=== PATIENT | female | born 2000 | race Caucasian/White ===

== ENCOUNTER → 2018-01-15 | Outpatient (REF) | payer OTHER ==
[2018-01-15 11:04] LABS: HEMATOCRIT 41.4 % (36.0-47.0); HEMOGLOBIN 13.7 g/dl (12.0-15.5); MEAN CORPUSCULAR HEMOGLOBIN 29.5 pg (27.0-33.0); MEAN CORPUSCULAR HGB CONC 33.1 g/dl (32.0-36.5); MEAN CORPUSCULAR VOLUME 89.2 fl (80.0-96.0); PLATELET COUNT, AUTOMATED 307 10^3/uL (150-450); RED BLOOD COUNT 4.64 10^6/uL (4.00-5.40); RED CELL DISTRIBUTION WIDTH 11.9 % (11.5-14.5); WHITE BLOOD COUNT 5.5 10^3/uL (4.0-10.0)
[2018-01-15 11:27] LABS: ALBUMIN/GLOBULIN RATIO 1.05 (1.00-1.93); ALKALINE PHOSPHATASE 50 U/L (45-117); ALT/SGPT 39 U/L (12-78); ANION GAP 7 MEQ/L (8-16); AST/SGOT 25 U/L (7-37); BILIRUBIN,TOTAL 0.4 MG/DL (0.2-1.0); BLOOD UREA NITROGEN 13 MG/DL (7-18); CARBON DIOXIDE LEVEL 28 MEQ/L (21-32); CHLORIDE LEVEL 107 MEQ/L (98-107); CHOLESTEROL LEVEL 219 MG/DL (<200); CHOLESTEROL RISK RATIO 5.093 (<5); CREATININE FOR GFR 0.83 MG/DL (0.55-1.30); FREE T4 1.02 NG/DL (0.78-1.33); GLUCOSE, FASTING 85 MG/DL (70-100); HDL CHOLESTEROL 43 MG/DL (>40); LDL CHOLESTEROL 146.6 MG/DL (<100); NON-HDL-C 176 MG/DL; POTASSIUM SERUM 4.6 MEQ/L (3.5-5.1); SODIUM LEVEL 142 MEQ/L (136-145); TOTAL 25(OH) VITAMIN D 19.6 NG/ML (30.0-100.0); TOTAL PROTEIN 7.8 GM/DL (6.4-8.2); TRIGLYCERIDES LEVEL 147 MG/DL (<150)
[2018-01-15 11:28] LABS: FOLATE 11.6 NG/ML; VITAMIN B12 LEVEL 285 PG/ML
[2018-01-15 12:21] LABS: ESTIMATED AVERAGE GLUCOSE 91 MG/DL (60-110); HEMOGLOBIN A1c 4.8 %
== END ==
LOC: M SFHCPLAZ 09:28
DX: F32.89 Other specified depressive episodes (principal); Z83.3 Family history of diabetes mellitus; K21.9 Gastro-esophageal reflux disease without esophagitis; E66.01 Morbid (severe) obesity due to excess calories

== ENCOUNTER 2018-02-05 21:42 | Emergency (ER) | payer OTHER ==
[2018-02-05] MEDS: METHOCARBAMOL 500 MG TAB PO (22:26)
[2018-02-05] MEDS: IBUPROFEN 600 MG TAB PO (22:27)
== END 2018-02-05 22:35 | disposition home or self-care (01) ==
LOC: M ED 21:42
DX: S16.1XXA Strain of muscle, fascia and tendon at neck level, initial encounter (principal); X58.XXXA Exposure to other specified factors, initial encounter; Y92.89 Other specified places as the place of occurrence of the external cause; M54.12 Radiculopathy, cervical region; Z79.899 Other long term (current) drug therapy
CPT/HCPCS: 99282

== ENCOUNTER → 2018-02-09 | Outpatient (CLI) | payer OTHER | LOC: M RAD 16:29 | DX: M54.2 Cervicalgia (principal); M25.512 Pain in left shoulder | CPT/HCPCS: 72052 ==

== ENCOUNTER 2018-02-10 11:51 | Outpatient (RCR) | payer OTHER | END 2018-03-07 | LOC: M PT 11:51 | DX: Z51.89 Encounter for other specified aftercare (principal); M54.2 Cervicalgia; M25.512 Pain in left shoulder; M62.830 Muscle spasm of back | CPT/HCPCS: 97010 ==

== ENCOUNTER 2018-03-08 11:17 | Outpatient (RCR) | payer OTHER | END 2018-04-07 | LOC: M PT 03-11 10:41 | DX: M62.830 Muscle spasm of back (principal) | CPT/HCPCS: 97110 ==

== ENCOUNTER → 2018-04-20 | Outpatient (REF) | payer OTHER ==
[2018-04-20 17:03] LABS: FOLATE 8.7 NG/ML; TOTAL 25(OH) VITAMIN D 23.8 NG/ML (30.0-100.0); VITAMIN B12 LEVEL 352 PG/ML
== END ==
LOC: M SFHCPLAZ 14:38
DX: E55.9 Vitamin D deficiency, unspecified (principal); R79.89 Other specified abnormal findings of blood chemistry
CPT/HCPCS: 82746

== ENCOUNTER 2018-08-17 09:31 | Emergency (ER) | payer OTHER ==
[~2018-08-17] VITALS: Ht 160 cm; Wt 109.4 kg
[~2018-08-17 09:31] MED LIST: IBUP-1022 PO; OMEP40CA2 PO; ROBA500T PO
[2018-08-17] MEDS ORDERED: NS 1,000 ML IV ONE (10:00)
[2018-08-17] MEDS ORDERED: ONDANSETRON 4MG/2ML VIAL (J2405) IV ONE (10:00)
[2018-08-17 10:38] LABS: BASO % 0.2 % (0.0-1.0); EOS # 0.1 10^3/uL (0.0-0.50); EOS % 0.7 % (0.0-3.0); HEMATOCRIT 44.4 % (36.0-47.0); HEMOGLOBIN 14.9 g/dl (12.0-15.5); LYMPH # 0.4 10^3/uL (1.5-6.5); LYMPH % 3.3 % (24.0-44.0); MEAN CORPUSCULAR HEMOGLOBIN 29.7 pg (27.0-33.0); MEAN CORPUSCULAR HGB CONC 33.6 g/dl (32.0-36.5); MEAN CORPUSCULAR VOLUME 88.6 fl (80.0-96.0); MONO # 0.6 10^3/uL (0.0-0.8); MONO % 4.3 % (0.0-5.0); NEUTROPHILS # 11.8 10^3/uL (1.8-7.7); PLATELET COUNT, AUTOMATED 284 10^3/uL (150-450); RED BLOOD COUNT 5.01 10^6/uL (4.00-5.40); WHITE BLOOD COUNT 12.9 10^3/uL (4.0-10.0)
[2018-08-17 10:50] LABS: HCG, SERUM QUALITATIVE NEGATIVE (NEGATIVE)
[2018-08-17 10:58] LABS: ALBUMIN 4.3 GM/DL (3.2-5.2); ALT/SGPT 32 U/L (12-78); AMYLASE 36 U/L (25-115); BILIRUBIN,DIRECT 0.1 MG/DL (0.0-0.2); BILIRUBIN,TOTAL 0.5 MG/DL (0.2-1.0); BLOOD UREA NITROGEN 21 MG/DL (7-18); CALCIUM LEVEL 8.6 MG/DL (8.5-10.1); CARBON DIOXIDE LEVEL 24 MEQ/L (21-32); CHLORIDE LEVEL 108 MEQ/L (98-107); CREATININE FOR GFR 0.95 MG/DL (0.55-1.30); GLUCOSE, FASTING 119 MG/DL (70-100); LIPASE 135 U/L (73-393); POTASSIUM SERUM 4.5 MEQ/L (3.5-5.1); SODIUM LEVEL 140 MEQ/L (136-145); TOTAL PROTEIN 7.8 GM/DL (6.4-8.2)
[2018-08-17] MEDS ORDERED: ONDA4TAB6 PO (11:49)
[2018-08-17 11:55] VITALS: BP 122/56
== END 2018-08-17 12:10 | disposition home or self-care (01) ==
LOC: M ED 09:31
DX: R11.2 Nausea with vomiting, unspecified (principal); K21.9 Gastro-esophageal reflux disease without esophagitis
CPT/HCPCS: 80048; 80076; 81001; 82150; 83690; 84703; 85025; 96361; 96374; 99284; J2405

== ENCOUNTER → 2018-11-12 | Outpatient (REF) | payer OTHER ==
[~2018-11-12] MED LIST changes: +ONDA4TAB6 PO
[2018-11-12 16:20] LABS: FOLATE 8.8 NG/ML
== END ==
LOC: M SFHCPLAZ 12:51
PROVIDERS: ATTEND Nurse Practitioner Family
DX: E55.9 Vitamin D deficiency, unspecified (principal); R79.89 Other specified abnormal findings of blood chemistry

== ENCOUNTER 2019-02-02 09:27 | Emergency (ER) | payer OTHER ==
[~2019-02-02] VITALS: Ht 160 cm; Wt 100.0 kg
[~2019-02-02 09:27] MED LIST changes: -OMEP40CA2 PO; +OMEP40CA97 PO
[2019-02-02 10:21] LABS: APPEARANCE, URINE CLEAR (CLEAR); BACTERIA, URINE AUTO NEGATIVE (NEGATIVE); BILIRUBIN, URINE AUTO NEGATIVE (NEGATIVE); BLOOD, URINE BLOOD NEGATIVE (NEGATIVE); COLOR, URINE YELLOW (YELLOW); GLUCOSE, URINE (UA) AUTO NEGATIVE (NEGATIVE); KETONE, URINE AUTO 1+ mg/dL (NEGATIVE); LEUKOCYTE ESTERASE, URINE AUTO NEGATIVE (NEGATIVE); MUCUS, URINE SMALL (NEGATIVE); NITRITE, URINE AUTO NEGATIVE (NEGATIVE); PROTEIN, URINE AUTO NEGATIVE (NEGATIVE); RBC, URINE AUTO 2 /HPF (0-3); SPECIFIC GRAVITY URINE AUTO 1.018 (1.002-1.035); SQUAMOUS EPITHELIAL CELL UR AU 0 /HPF (0-6); UROBILINOGEN, URINE AUTO 0.2 mg/dL (0.0-2.0); WBC, URINE AUTO 0 /HPF (0-3)
[2019-02-02 10:38] LABS: BASO % 0.2 % (0.0-1.0); EOS # 0.1 10^3/uL (0.0-0.50); EOS % 1.7 % (0.0-3.0); HEMATOCRIT 42.1 % (36.0-47.0); HEMOGLOBIN 14.2 g/dl (12.0-15.5); LYMPH # 1.7 10^3/uL (1.5-6.5); LYMPH % 26.1 % (24.0-44.0); MEAN CORPUSCULAR HEMOGLOBIN 30.7 pg (27.0-33.0); MEAN CORPUSCULAR HGB CONC 33.7 g/dl (32.0-36.5); MEAN CORPUSCULAR VOLUME 90.9 fl (80.0-96.0); MONO # 0.4 10^3/uL (0.0-0.8); MONO % 5.9 % (0.0-5.0); NEUTROPHILS # 4.4 10^3/uL (1.8-7.7); NEUTROPHILS % 65.8 % (36.0-66.0); PLATELET COUNT, AUTOMATED 272 10^3/uL (150-450); RED BLOOD COUNT 4.63 10^6/uL (4.00-5.40); WHITE BLOOD COUNT 6.6 10^3/uL (4.0-10.0)
[2019-02-02 11:10] LABS: ALBUMIN 3.9 GM/DL (3.2-5.2); ALT/SGPT 27 U/L (12-78); BILIRUBIN,DIRECT 0.1 MG/DL (0.0-0.2); BILIRUBIN,TOTAL 0.6 MG/DL (0.2-1.0); BLOOD UREA NITROGEN 13 MG/DL (7-18); CALCIUM LEVEL 9.1 MG/DL (8.5-10.1); CARBON DIOXIDE LEVEL 27 MEQ/L (21-32); CHLORIDE LEVEL 105 MEQ/L (98-107); CK-MB VALUE MASS < 1.0 NG/ML (<3.6); CPK CREATINE PHOSPHOKINASE 120 U/L (26-192); CREATININE FOR GFR 0.76 MG/DL (0.55-1.30); GLUCOSE, FASTING 89 MG/DL (70-100); HCG, SERUM QUANTITATIVE < 1.0 MIU/ML; LIPASE 126 U/L (73-393); MB/CK RELATIVE INDEX 0.83 (< OR =4); POTASSIUM SERUM 4.3 MEQ/L (3.5-5.1); SODIUM LEVEL 139 MEQ/L (136-145); TOTAL PROTEIN 7.3 GM/DL (6.4-8.2); TROPONIN I < 0.02 NG/ML (< 0.10)
--- NOTE | 2019-02-02 12:15 | REP ---
PA and lateral chest: There are no comparisons. The lung keen are clear. The cardiac size is normal. The thuy, mediastinum, and skeletal structures are unremarkable. Impression: Negative PA and lateral chest. Electronically Signed by Milton Banegas MD 02/02/2019 12:06 P
[2019-02-02 12:53] VITALS: BP 126/59
--- NOTE | 2019-02-03 20:36 | ECGEPIP ---
[facility] - ED Test Date: 2019-02-02 Pat Name: TOÑO PLATA Department: Room: - Gender: Female Appliance Technician: jorgito : 2000 Requested By: APRIL ANDREA Order Number: [id number] Reading MD: Beryl Ortiz Measurements Intervals [place] Rate: 59 P: 23 NV: 146 QRS: -9 QRSD: 117 T: 25 QT: 425 QTc: 421 Interpretive Statements SINUS BRADYCARDIA WITH SINUS ARRHYTHMIA INCOMPLETE RIGHT BUNDLE BRANCH BLOCK NO PRIOR Electronically Signed on 02-03-2019 20:36:17 EDT by Beryl Ortiz
== END 2019-02-02 13:00 | disposition home or self-care (01) ==
LOC: M ED 09:27
DX: F41.8 Other specified anxiety disorders (principal); R07.89 Other chest pain; R00.1 Bradycardia, unspecified; I45.19 Other right bundle-branch block; K21.9 Gastro-esophageal reflux disease without esophagitis